=== PATIENT | male | born 1990 | race African-American/Black ===

== ENCOUNTER 2017-10-19 22:27 | Emergency (ER) | payer OTHER ==
[2017-10-19 22:35] VITALS: BP 142/79; PULSE 110; TEMP 99.1; BMI 28.5
--- NOTE | 2017-10-19 23:38 | PDOC ---
History of Present Illness - General History Source: Patient - History of Present Illness Initial Comments: 10/20/17 00:33 Patient is a 26 y.o male with a PMH of MR, ADHD, Asthma and Seizure disorder ( cannot provide information of last seizure, phone call to [facility] unanswered ) who presents from assisted living facility ([facility] ) with c/o headache. History is limited 2/2 to patient's MR. As per health aide @ bedside patient began to c/o headache at approximately 5 p.m. today. Patient and aide deny any trauma, nausea/vomiting, changes in baseline mental state. NKDA Surgical: none documented in paperwork from [facility] <Sheila Spivey - Last Filed: 10/20/17 01:08> <Danisha Bhatti - Last Filed: 10/20/17 03:05> - General Chief Complaint: Headache Stated Complaint: HEADACHE Time Seen by Provider: 10/19/17 22:45 Past History - Suicide/Smoking/Psychosocial Hx Smoking History: Never smoked <Sheila Spivey - Last Filed: 10/20/17 01:08> <Danisha Bhatti - Last Filed: 10/20/17 03:05> - Past Medical History Allergies/Adverse Reactions: Allergies Allergy/AdvReac Type Severity Reaction Status Date / Time No Known Allergies Allergy Verified 10/19/17 22:35 Home Medications: Ambulatory Orders NK [No Known Home Medication] 10/20/17 Review of Systems - Review of Systems Able to Perform ROS?: No <Sheila Spivey - Last Filed: 10/20/17 01:08> *Physical Exam - Vital Signs Last Vital Signs Temp Pulse Resp BP Pulse Ox 99.1 F 110 H 18 142/79 100 10/19/17 22:28 10/19/17 22:28 10/19/17 22:28 10/19/17 22:28 10/19/17 22:28 - Physical Exam Comments: 10/20/17 00:45 GENERAL: Awake, alert, in no acute distress, moving all 4 extremities, pelvis stable HEAD: No signs of trauma including no obvious lacerations/lesions/hematoma EYES: PERRLA, EOMI, sclera anicteric, conjunctiva clear ENT: B/L tympanic membrane erythema, nares patent, oropharynx clear without exudates, Moist mucosa NECK: Normal ROM, supple, no lymphadenopathy, JVD, or masses LUNGS: Breath sounds equal, clear to auscultation bilaterally. No wheezes, and no crackles HEART: Regular rate and rhythm, normal S1 and S2, no murmurs, rubs or gallops ABDOMEN: Soft, nontender, normoactive bowel sounds. No guarding, no rebound. No masses EXTREMITIES: Normal range of motion, no edema. No clubbing or cyanosis. No cords , erythema, or tenderness BACK: No midline spinal tenderness in cervical/thoracic/lumbar region NEUROLOGICAL: Normal speech, cranial nerves intact, negative pronator drift, 5/ 5 strength in all 4 extremities, normal sensation to light touch in all 4 extremities, normal cerebellar exam, normal gait, normal reflexes and tone SKIN : Warm, Dry, normal turgor, no rashes or lesions noted. <Sheila Spivey - Last Filed: 10/20/17 01:08> - Vital Signs Last Vital Signs Temp Pulse Resp BP Pulse Ox 99.1 F 110 H 18 142/79 100 10/19/17 22:28 10/19/17 22:28 10/19/17 22:28 10/19/17 22:28 10/19/17 22:28 <Danisha Bhatti - Last Filed: 10/20/17 03:05> ED Treatment Course - LABORATORY CBC & Chemistry Diagram: 10/20/17 00:20 10/20/17 00:20 <Sheila Spivey - Last Filed: 10/20/17 01:08> - LABORATORY CBC & Chemistry Diagram: 10/20/17 00:20 10/20/17 00:20 - ADDITIONAL ORDERS Additional order review: Laboratory Results 10/20/17 00:20 Sodium 135 L Potassium 3.6 Chloride 101 Carbon Dioxide 25 Anion Gap 9 BUN 17 Creatinine 1.1 Creat Clearance w eGFR > 60 Random Glucose 88 Calcium 9.1 Total Bilirubin 1.1 H AST 15 ALT 23 Alkaline Phosphatase 79 Total Protein 8.1 Albumin 4.3 10/20/17 02:10 Group A Strep Rapid Antigen - Final Throat 10/20/17 02:15 Influenza Types A,B Antigen (JESS) - Final Nasopharyngeal Swab - Final 10/20/17 00:20 RBC 5.94 H MCV 83.7 MCHC 32.7 RDW 14.3 MPV 9.3 Neutrophils % 84.4 H Lymphocytes % 5.4 L Monocytes % 9.9 Eosinophils % 0.1 Basophils % 0.2 - Medications Given in the ED: ED Medications Discontinued Medications Generic Name Dose Route Start Last Admin Trade Name Melinda PRN Reason Stop Dose Admin Acetaminophen 1,000 mg 10/20/17 02:07 10/20/17 02:23 Ofirmev Injection - IVPB 10/20/17 02:08 1,000 mg ONCE ONE Administration Ibuprofen 600 mg 10/20/17 02:07 10/20/17 02:23 Motrin - PO 10/20/17 02:08 600 mg ONCE ONE Administration Penicillin G Benzathine 1,200,000 unit 10/20/17 02:35 10/20/17 02:54 Bicillin L-A - IM 10/20/17 02:36 1,200,000 unit ONCE ONE Administration <Danisha Bhatti - Last Filed: 10/20/17 03:05> Medical Decision Making - Medical Decision Making 10/20/17 00:50 26 y.o. male presents c/o headache. As patient is limited historian 2/2 developmental disability and possible h/o trauma will CT head. Reasess. <Sheila Spivey - Last Filed: 10/20/17 01:08> *DC/Admit/Observation/Transfer <Sheila Spivey - Last Filed: 10/20/17 01:08> - Discharge Dispostion Admit: No <Danisha Bhatti - Last Filed: 10/20/17 03:05> Diagnosis at time of Disposition: Strep throat - Discharge Dispostion Disposition: HOME Condition at time of disposition: Stable - Referrals Referrals: ON STAFF,NOT [Primary Care Provider] - - Patient Instructions Printed Discharge Instructions: DI for Strep Throat - Post Discharge Activity
[2017-10-20 00:42] LABS: BASO % 0.2 % (0-2.0); EOS % 0.1 % (0-4.5); HEMATOCRIT 49.7 % (35.4-49); HEMOGLOBIN 16.2 GM/dL (11.7-16.9); LYMPH % 5.4 % (8-40); MCH 27.3 pg (25.7-33.7); MCHC 32.7 g/dl (32.0-35.9); MEAN CELL VOLUME 83.7 fl (80-96); MEAN PLT VOLUME 9.3 fl (7.5-11.1); MONO % 9.9 % (3.8-10.2); NEUT % 84.4 % (42.8-82.8); PLATELET COUNT 142 K/MM3 (134-434); RBC 5.94 M/mm3 (4.00-5.60); RDW 14.3 % (11.9-15.9); WHITE BLOOD COUNT 15.7 K/mm3 (4.0-10.0)
[2017-10-20 01:10] LABS: ALBUMIN 4.3 g/dl (3.4-5.0); ANION GAP 9 (8-16); BLOOD UREA NITROGEN 17 mg/dL (7-18); CALCIUM 9.1 mg/dL (8.5-10.1); CHLORIDE 101 mmol/L (98-107); CO2 25 mmol/L (21-32); GLUCOSE,RANDOM 88 mg/dL (74-106); POTASSIUM 3.6 mmol/L (3.5-5.1); SODIUM 135 mmol/L (136-145)
[2017-10-20 01:13] LABS: ALK PHOS 79 U/L (45-117); BILIRUBIN,TOTAL 1.1 mg/dL (0.2-1.0); CREATININE 1.1 mg/dL (0.7-1.3); SGOT/AST 15 U/L (15-37); SGPT/ALT 23 U/L (12-78); TOT PROT 8.1 g/dl (6.4-8.2)
--- NOTE | 2017-10-20 02:01 | PDOC ---
Attending Attestation - Resident Resident Name: AllyssaSheila - ED Attending Attestation I have performed the following: I have examined & evaluated the patient, The case was reviewed & discussed with the resident, I agree w/resident's findings & plan - HPI HPI: 10/20/17 02:01 Pt comes with fever and headache - Physicial Exam PE: 10/20/17 02:01 Agree with resident exam. 10/20/17 02:10 Pt has pharyngeal exudates. I sent off a rapid strep. Pt will also get a rapid flu test. - Medical Decision Making 10/20/17 02:01 Patient Name: ROSMERY HAYS THIS IS A PRELIMINARY REPORT FROM [facility] DATE OF SERVICE: 2017-10-20 00:42:51 IMAGES: 172 EXAM: HEAD CT WITHOUT CONTRAST HISTORY: Headaches COMPARISON: None. FINDINGS: Normal brain. No acute intracranial abnormality. No hemorrhage. No visible infarct or mass. Osseous structures are intac 10/20/17 02:10 Pt burning up with fever. We will give ofirmev and motrin. 10/20/17 02:32 +rapid strep.. We will treat with IM Bicillin
[2017-10-20] MEDS ORDERED: IBUPROFEN 600 MG TABLET (FP) PO ONE ×2 (02:07→02:13)
[2017-10-20] MEDS ORDERED: ACETAMINOPHEN 1000 MG/100 ML VIAL (NON FORMULARY) IVPB ONE (02:07)
[2017-10-20] MEDS ORDERED: ACETAMINOPHEN INJECTION 100 ML IVPB ONE (02:13)
[2017-10-20] MEDS ORDERED: PENICILLIN G BENZATHINE 1,200,000 UNIT/2 ML PFS IM ONE (02:35)
[2017-10-20] MEDS ORDERED: PENICILLIN G BENZATHINE 2,400,000 UNIT/4 ML PFS ONE (02:45)
--- NOTE | 2017-10-21 22:23 | PDOC ---
Patient Follow-up (Call Back) - Post ED Follow - Up Condition at time of discharge: Stable Disposition at time of original discharge: HOME Reason for Call Back: Abnwl. Microbiology (Lab called-Throat cx + for strep and blood cx + (anerobic bottle grew out gram neg bacili and aerobic bottle grew out Gram + cocci in clusters, sensitivities pending) [facility] and gave urgent message to aide by the name of Frank who will relay to the RN Lilliana friction paint machine tender. Told to have pt return mina as concernis for sepsis)
== END 2017-10-20 03:39 | disposition home or self-care (01) ==
LOC: JER 22:27
PROC: 3E02329 Introduction of Other Anti-infective into Muscle, Percutaneous Approach (ICD-10-PCS; principal; 2017-10-19)
PROC: 3E033NZ Introduction of Analgesics, Hypnotics, Sedatives into Peripheral Vein, Percutaneous Approach (ICD-10-PCS; 2017-10-19)
DX: J02.0 Streptococcal pharyngitis (principal); B95.0 Streptococcus, group A, as the cause of diseases classified elsewhere; J45.909 Unspecified asthma, uncomplicated; G40.909 Epilepsy, unspecified, not intractable, without status epilepticus; F90.9 Attention-deficit hyperactivity disorder, unspecified type; F79 Unspecified intellectual disabilities
CPT/HCPCS: 36415; 70450-TC; 71046-TC-FY; 80053; 85025; 87040; 87070; 87186; 87430; 87804; 96372; 96374; 99282-25

== ENCOUNTER 2017-10-21 23:36 | Emergency (ER) | payer OTHER ==
[2017-10-22 00:01] VITALS: BP 115/72; PULSE 75; TEMP 98.2; BMI 24.8
--- NOTE | 2017-10-22 02:41 | PDOC ---
History of Present Illness - General Chief Complaint: Revisit, Lab Variance Stated Complaint: ER REVIST Time Seen by Provider: 10/22/17 02:38 History Source: Patient Exam Limitations: No Limitations - History of Present Illness Initial Comments: CHIEF COMPLAINT: 26 y/o afebrile male with PMH MR, ADHD, asthma and seizure disorder here from [facility] in [place] after getting a call telling him to come back. HISTORY OF PRESENT ILLNESS: The patient was seen here 2 days ago and treated for strep throat. He had blood cultures drawn with a preliminary positive result today. He received a call to come in [facility]. patient states he is starting to feel better. He denies fever, chills and all other symptoms. Vital signs on arrival are within normal limits. REVIEW OF SYSTEMS: GENERAL/CONSTITUTIONAL: No fever/chills. No weakness. No weight change. HEAD, EYES, EARS, NOSE AND THROAT: No change in vision. No ear pain or discharge. No sore throat. CARDIOVASCULAR: No chest pain or shortness of breath. RESPIRATORY: No cough, wheezing, or hemoptysis. GASTROINTESTINAL: No abd pain, nausea, vomiting, diarrhea. GENITOURINARY: No dysuria, frequency, or change in urination. MUSCULOSKELETAL: No joint or muscle swelling or pain. No neck or back pain. SKIN: No rash or easy bruising. NEUROLOGIC: No headache, vertigo, loss of consciousness, or loss of sensation. PHYSICAL EXAM: GENERAL: The patient is awake, alert, and fully oriented, in no acute distress. HEAD: Normal with no signs of trauma. ENT: Pupils equal, round and reactive to light, extraocular movements intact, sclera anicteric, conjunctiva clear. Neck supple. LUNGS: Clear to auscultation bilaterally. Normal excursion. No respiratory distress or use of accessory muscles. CV: RRR, S1/S2, no MRG. Cap refill < 2 sec. ABDOMEN: Soft, non-distended, non-tender even to deep palpation, no hepatomegaly or splenomegaly, no masses. EXTREMITIES: Normal range of motion, no edema. NEUROLOGICAL: Normal speech, normal gait. CN II-XII grossly intact. PSYCH: Normal mood, normal affect. SKIN: Warm, dry, normal turgor, no rashes or lesions noted. Past History - Past Medical History Allergies/Adverse Reactions: Allergies Allergy/AdvReac Type Severity Reaction Status Date / Time No Known Allergies Allergy Verified 10/21/17 23:59 Home Medications: Ambulatory Orders NK [No Known Home Medication] 10/20/17 COPD: No - Suicide/Smoking/Psychosocial Hx Smoking History: Never smoked Have you smoked in the past 12 months: No Information on smoking cessation initiated: No Hx Alcohol Use: No Drug/Substance Use Hx: No Substance Use Type: None *Physical Exam - Vital Signs Last Vital Signs Temp Pulse Resp BP Pulse Ox 98.2 F 75 20 115/72 100 10/21/17 23:59 10/21/17 23:59 10/21/17 23:59 10/21/17 23:59 10/21/17 23:59 Medical Decision Making - Medical Decision Making A/P: 26 y/o male treated for strep throat 2 days ago called back in for positive blood culture results. Patient is asymptomatic. suspect blood cultures were contaminated. Plan is to re-draw blood cultures and discharge patient back to [facility]. Informed the patient and care worker at bedside that someone will call in 2-3 days with results. informed them that if the patient gets a fever or any other concerning symptoms he will need to return to the ER immediately. The patient and care worker verbalize understanding of all instructions, have no further questions and are awaiting discharge. *DC/Admit/Observation/Transfer Diagnosis at time of Disposition: Abnormal laboratory test - Discharge Dispostion Disposition: HOME Condition at time of disposition: Good - Referrals Referrals: Holden Billingsley [Primary Care Provider] - - Patient Instructions Additional Instructions: Discharge Instructions: -You will receive a call in 2-3 days if your lab results are positive -please return to the ER immediately with any worsening or concerning symptoms, including fever. - Post Discharge Activity
--- NOTE | 2017-10-23 08:11 | PDOC ---
Patient Follow-up (Call Back) - Post ED Follow - Up Condition at time of discharge: Good Disposition at time of original discharge: HOME Reason for Call Back: Abnwl. Microbiology (Patient return to the ED on 10/22 for repeat blood cultures. Will await new culture results.)
== END 2017-10-22 03:15 | disposition home or self-care (01) ==
LOC: JER 23:36
DX: R78.81 Bacteremia (principal); F90.9 Attention-deficit hyperactivity disorder, unspecified type; F79 Unspecified intellectual disabilities; G40.909 Epilepsy, unspecified, not intractable, without status epilepticus; J45.909 Unspecified asthma, uncomplicated; Z00.01 Encounter for general adult medical examination with abnormal findings
CPT/HCPCS: 87040; 99282-25